=== PATIENT | female | born 2000 | race Two or more races ===

== ENCOUNTER 2022-02-18 14:26 | Emergency (ER) | payer MEDICAID ==
[~2022-02-18] VITALS: Ht 162.6 cm; Wt 50.8 kg
[2022-02-18] MEDS ORDERED: AMOX500T3 PO (16:04)
[2022-02-18] MEDS ORDERED: AMOX-277 PO (16:24)
[2022-02-18 16:25] VITALS: BP 116/81
== END 2022-02-18 16:35 | disposition home or self-care (01) ==
LOC: ER 14:26
DX: J02.9 Acute pharyngitis, unspecified (principal)

== ENCOUNTER 2022-04-07 14:20 | Emergency (ER) | payer MEDICAID ==
[~2022-04-07] VITALS: Ht 162.6 cm; Wt 45.4 kg
[~2022-04-07 14:20] MED LIST: AMOX-277 PO
[2022-04-07 15:00] VITALS: BP 124/82
== END 2022-04-07 16:28 | disposition left against medical advice (07) ==
LOC: ER 14:20
DX: J02.9 Acute pharyngitis, unspecified (principal); Z53.21 Procedure and treatment not carried out due to patient leaving prior to being seen by health care provider

== ENCOUNTER 2022-11-09 15:32 | Emergency (ER) | payer MEDICAID ==
[~2022-11-09] VITALS: Ht 162.6 cm; Wt 54.6 kg
[2022-11-09 16:09] VITALS: BP 128/68
[2022-11-09 17:02] LABS: Urine Bacteria FEW /hpf (None Seen); Urine Blood 2+ /uL (Negative); Urine Hyaline Cast FEW /lpf (0 - 2); Urine Specific Gravity 1.008 (1.001-1.035); Urine WBC 1 /hpf (0 - 5)
== END 2022-11-09 19:01 | disposition left against medical advice (07) ==
LOC: ER 15:32
DX: R10.32 Left lower quadrant pain (principal); Z53.21 Procedure and treatment not carried out due to patient leaving prior to being seen by health care provider
CPT/HCPCS: 81001

== ENCOUNTER 2022-12-12 10:53 | Emergency (ER) | payer MEDICAID ==
[~2022-12-12] VITALS: Ht 162.6 cm; Wt 54.0 kg
[2022-12-12 11:17] LABS: Basophils # (auto) 0.1 10 ^3/uL (0-0.2); Basophils % (auto) 1.1 % (0.0-2.0); Eosinophils # (auto) 0 10 ^3/uL (0-0.8); Eosinophils % (auto) 0.4 % (0.0-7.0); Hematocrit 43.9 % (36.0-46.0); Hemoglobin 14.9 g/dL (12.2-16.2); Lymphocytes # (auto) 1.7 10 ^3/uL (0.4-5.4); Lymphocytes % (auto) 20.6 % (10.0-50.0); Mean Corpuscular Hemoglobin 30.1 pg (28.0-32.0); Mean Corpuscular Hgb Conc. 33.8 g/dL (32.0-36.0); Mean Corpuscular Volume 89.1 fL (80.0-100.0); Monocytes # (auto) 0.9 10 ^3/uL (0-1.3); Monocytes % (auto) 11.3 % (0.0-12.0); Neutrophils # (auto) 5.4 10 ^3/uL (1.6-8.6); Neutrophils % (auto) 66.6 % (37.0-80.0); Red Blood Cells 4.93 10^6/uL (4.0-5.20); Red Cell Distribution Width 13.3 % (11.8-14.3)
[2022-12-12 11:37] LABS: Albumin 4.7 g/dL (3.4-5.0); Calcium 9.8 mg/dL (8.5-10.1); Potassium 3.8 mmol/L (3.5-5.1)
[2022-12-12 11:41] LABS: BUN/Creatinine Ratio 14.5; Bilirubin, Total 1.1 mg/dL (0.2-1.0); Total Protein 9.1 g/dL (6.4-8.2)
[2022-12-12] MEDS ORDERED: LORazepam 0.5 MG TAB PO ONE (12:30)
[2022-12-12 14:19] VITALS: BP 122/80
== END 2022-12-12 14:49 | disposition home or self-care (01) ==
LOC: ER 10:53
DX: F41.9 Anxiety disorder, unspecified (principal)
CPT/HCPCS: 36415; 80053; 84484; 85025; 93005

== ENCOUNTER 2024-03-26 17:58 | Emergency (ER) | payer MEDICAID ==
[~2024-03-26] VITALS: Ht 165.1 cm; Wt 52.0 kg
[~2024-03-26 17:58] MED LIST changes: -AMOX-277 PO; +AMOX875T4 PO
[2024-03-26 21:45] VITALS: BP 120/74; PULSE 97; RESP 16; TEMP 99.4; O2SAT 96
[2024-03-26] MEDS ORDERED: ACET500T58 PO (21:47)
[2024-03-26] MEDS ORDERED: AMOX500C2 PO (21:47)
[2024-03-26] MEDS: cefTRIAXone SOD 1,000 MG VL IM ONE (21:57)
== END 2024-03-26 22:06 | disposition home or self-care (01) ==
LOC: ER 17:58
DX: K04.7 Periapical abscess without sinus (principal); F41.9 Anxiety disorder, unspecified
CPT/HCPCS: 96372; 99283; J0696

== ENCOUNTER 2024-08-19 22:40 | Emergency (ER) | payer MEDICAID ==
[~2024-08-19] VITALS: Ht 167.6 cm; Wt 52.3 kg
[~2024-08-19 22:40] MED LIST changes: +ACET500T58 PO; +AMOX500C2 PO
[2024-08-19 23:38] VITALS: BP 125/74; PULSE 80; RESP 16; TEMP 97.7; O2SAT 97
[2024-08-19] MEDS ORDERED: CEPH500C PO (23:53)
--- NOTE | 2024-08-19 23:53 | ED.PDOC ---
History of Present Illness(SKN HPI Comments 24-year-old female presents to ER for wound check. Patient states that she sustained abrasions to right knee and left hand s/p trip and fall and landing on her right knee and left hand on cement on Monday of last week and presents to ER today for wound check. States that she has been using triple antibiotic ointment and alcohol swabs on her abrasions with some relief. She reports 7/10 pain localized to abrasion right knee and abrasion of left hand. Patient presents to ER ambulatory on arrival, with steady gait, in no distress. Denies fever, body aches, chills, skin drainage or any further symptoms/complaints Chief Complaint: Wound Check Time Seen by MD: 22:59 Primary Care Provider: SARAH History of Present Illness: Nurses Notes, Medications, Allergies Allergies: Coded Allergies: NO KNOWN ALLERGIES (Unverified , 04/14/16) Home Meds Active Scripts Cephalexin Monohydrate (Cephalexin) 500 Mg Cap, 1 CAP PO BID for 7 Days, #14 CAP 0 Refills Prov:BETH READ 08/19/24 Acetaminophen (Acetaminophen) 500 Mg Tab, 500 MG PO Q4HPRN, #30 TAB 0 Refills Prov:BETH READ 03/26/24 Amoxicillin Trihydrate (Amoxicillin) 500 Mg Cap, 1 CAP PO BID for 10 Days, #20 CAP 0 Refills Prov:BETH READ 03/26/24 Amoxicillin & Pot Clavulanate (Amoxicillin/Potassium Cla) 875 Mg Tab, 1 TAB PO BID for 10 Days, #20 TAB Prov:DERIK KRISHNAN 02/18/22 Information Source: Patient Mode of Arrival: Ambulatory Past Medical History PAST MEDICAL HISTORY: Anxiety Surgical History (Other): per patient "heart murmur surgery"- December 2023 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 Family History Family History: Unknown Social History Smoker: Non-Smoker Alcohol: Denies ETOH Use Drugs: Denies Drug Use Lives In: Home Constitutional: denies: chills, diaphoresis, fatigue, fever, malaise, sweats, weakness, others EENTM: denies: blurred vision, double vision, ear bleeding, ear discharge, ear drainage, ear pain, ear ringing, eye pain, eye redness, hearing loss, mouth pain, mouth swelling, nasal discharge, nose bleeding, nose congestion, nose pain, photophobia, tearing, throat pain, throat swelling, voice changes, others Respiratory: denies: cough, hemoptysis, orthopnea, SOB at rest, shortness of breath, SOB with excertion, stridor, wheezing, others Cardiovascular: denies: chest pain, dizzy spells, diaphoresis, Dyspnea on exertion, edema, irregular heart beat, left arm pain, lightheadedness, palpitations, PND, syncope, others Gastrointestinal: denies: abdomen distended, abdominal pain, blood streaked bowels, constipated, diarrhea, dysphagia, difficulty swallowing, hematemesis, melena, nausea, poor appetite, poor fluid intake, rectal bleeding, rectal pain, vomiting, others Genitourinary: denies: abnormal vagina bleeding, burning, dyspareunia, dysuria, flank pain, frequency, hematuria, incontinence, pain, , vagina discharge, urgency, others Neurological: denies: dizziness, fainting, headache, left sided numbness, left sided weakness, numbness, paresthesia, pre-existing deficit, right sided numbness, right sided weakness, seizure, speech problems, tingling, tremors, weakness, others Musculoskeletal: denies: back pain, gout, joint pain, joint swelling, muscle pain, muscle stiffness, neck pain, others Integumetry: reports: others (As stated in HPI) Allergic/Immunocompromised: denies: Difficulty Healing, Frequent Infections, Hives, Itching, others Hematologic/Lymphatic: denies: anemia, blood clots, easy bleeding, easy bruising, swollen glands, others Endocrine: denies: excessive hunger, excessive sweating, excessive thirst, excessive urination, flushing, intolerance to cold, intolerance to heat, unexplained weight gain, unexplained weight loss, others Psychiatric: denies: anxiety, bipolar disorder, depression, hopeless, panic disorder, schizophrenia, sleepless, suicidal, others Physical Exam General Appearance: No Apparent Distress HEENT: PERRL/EOMI Neck: Full Range of Motion, Non-Tender, Normal Respiratory: Chest Non-Tender, Lungs Clear, No Accessory Muscle Use, No Respiratory Distress, Normal Breath Sounds Cardiovascular: No Murmur, No Gallop, Regular Rate/Rhythm Breast Exam: Deferred Gastrointestinal: NOT DONE Genitalia: Deferred Pelvic: Deferred Rectal: Deferred Extremities: Normal capillary refill, Normal range of motion Neurologic: Alert, No Motor Deficits, Normal Affect, Normal Mood, No Sensory Deficits Cerebellar Function: Normal Reflexes: Normal Skin: Dry, Warm, Other (Healing abrasions noted to right knee and palm of left hand noted with slight erythema noted surrounding wound edges. No drainage/red streaking/foreign body noted/deformities noted. No TTP to left wrist noted. Patient able to fully move right knee and all fingers of left hand without difficulty. Pulses intact) Peripheral Pulses: 2+ Radial (R), 2+ Radial (L), 2+ Brachial (R), 2+ Brachial (L) Lymphatic: No Adenopathy Was a procedure done? Was a procedure done?: No Sedation Sedation?: No Differential Diagnosis (INTG) Differential Diagnosis: Abscess Differential Diagnosis: Puncture Wound, Retained Foreign Body X-Ray, Labs, Meds, VS Vital Signs Date Time Temp Pulse Resp B/P (MAP) Pulse Ox O2 Delivery O2 Flow Rate FiO2 08/19/24 22:50 97.6 88 18 125/78 (94) 95 Wound care/cleaning discussed and advised Advised to follow up with PCP in 1-2 days Patient verbalized understanding and agreeable with current plan of care Advised to return to ER immediately if symptoms worsen Time of 1ST Reevaluation: 23:24 Reevaluation 1ST: N/A Patient Education/Counseling: Diagnosis, Treatment, Prognosis, Need For Follow Up Family Education/Counseling: No Family Present Departure 1 Departure Time of Disposition: 23:50 Impression: Primary Impression: Abrasion of knee, right Qualified Codes: S80.211A - Abrasion, right knee, initial encounter Additional Impression: Abrasion of left hand Qualified Codes: S60.512A - Abrasion of left hand, initial encounter Disposition: HOME / SELF CARE / HOMELESS Condition: Stable e-Prescriptions Cephalexin Monohydrate (Cephalexin) 500 Mg Cap 1 CAP PO BID for 7 Days, #14 CAP 0 Refills Prov: BETH READ 08/19/24 Discharged With: Self Critical Care Note Critical Care Time?: No Stability Stability form required: No Heart Score Heart Score: Heart Score Response (Comments) Value History N/A 0 EKG N/A 0 Age N/A 0 Risk Factors N/A 0 Troponin N/A 0 Total 0 BETH READ Aug 19, 2024 23:53
== END 2024-08-20 00:30 | disposition home or self-care (01) ==
LOC: ER 22:40
DX: S80.211A Abrasion, right knee, initial encounter (principal); S60.512A Abrasion of left hand, initial encounter; Z79.899 Other long term (current) drug therapy; Z98.890 Other specified postprocedural states; W18.39XA Other fall on same level, initial encounter; Y93.89 Activity, other specified; Y92.89 Other specified places as the place of occurrence of the external cause; Y99.8 Other external cause status

== ENCOUNTER 2024-09-01 22:42 | Emergency (ER) | payer MEDICAID, OTHER ==
[~2024-09-01] VITALS: Ht 167.6 cm; Wt 63.6 kg
[~2024-09-01 22:42] MED LIST changes: +CEPH500C PO
[2024-09-02] MEDS: ONDANSETRON HCL 4 MG/2 ML VIAL IV ONE (01:05)
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
[2024-09-02] MEDS: cefTRIAXone 1GM/50ML D5W 50 ML IV ONE (02:21)
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
[2024-09-02 04:52] VITALS: TEMP 98.6; O2SAT 99
[2024-09-02 05:02] VITALS: BP 119/66; PULSE 83; RESP 16
[2024-09-02] MEDS: MORPHINE SULFATE INJ 2 MG/ml SYRG IV ONE (05:02)
== END 2024-09-02 03:00 | disposition short-term general hospital (02) ==
LOC: ER 22:42
DX: S02.2XXA Fracture of nasal bones, initial encounter for closed fracture (principal); S02.32XA Fracture of orbital floor, left side, initial encounter for closed fracture; S02.19XA Other fracture of base of skull, initial encounter for closed fracture; S01.112A Laceration without foreign body of left eyelid and periocular area, initial encounter; V43.52XA Car driver injured in collision with other type car in traffic accident, initial encounter; Y92.410 Unspecified street and highway as the place of occurrence of the external cause
CPT/HCPCS: 70486; 96365; 96375; 99285; J0696; J2270; J2405

== ENCOUNTER 2025-07-19 20:08 | Emergency (ER) | payer MEDICAID, OTHER ==
[~2025-07-19] VITALS: Ht 167.6 cm; Wt 49.7 kg
[2025-07-19 20:10] VITALS: BP 139/78; TEMP 98.1
--- NOTE | 2025-07-19 20:28 | ED.PDOC ---
History of Present Illness HPI Comments 25 y/o F presents with c/c of left back tooth pain and bleeding. Chief Complaint: Tooth Pain Time Seen by MD: 20:20 Primary Care Provider: SARAH Bernal Notes: Nurses Notes, Medications, Allergies Allergies: Coded Allergies: NO KNOWN ALLERGIES (Unverified , 04/14/16) Home Meds Active Scripts Amoxicillin & Pot Clavulanate (AUGMENTIN TABLET) 875 Mg Tb, 875 MG PO BID for 7 Days, #14 TAB Prov:STEW FERRISP 07/19/25 Cephalexin Monohydrate (Cephalexin) 500 Mg Cap, 1 CAP PO BID for 7 Days, #14 CAP 0 Refills Prov:BETH READ 08/19/24 Acetaminophen (Acetaminophen) 500 Mg Tab, 500 MG PO Q4HPRN, #30 TAB 0 Refills Prov:BETH READ 03/26/24 Amoxicillin Trihydrate (Amoxicillin) 500 Mg Cap, 1 CAP PO BID for 10 Days, #20 CAP 0 Refills Prov:BETH READ 03/26/24 Amoxicillin & Pot Clavulanate (Amoxicillin/Potassium Cla) 875 Mg Tab, 1 TAB PO BID for 10 Days, #20 TAB Prov:DERIK KRISHNAN 02/18/22 Information Source: Patient Mode of Arrival: Ambulatory Past Medical History PAST MEDICAL HISTORY: Anxiety 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 Family History Family History: Unknown Social History Smoker: Non-Smoker Alcohol: Denies ETOH Use Drugs: Denies Drug Use Lives In: Home All Other Systems: Reviewed and Negative (Comprehensive review of systems are negative unless stated in HPI) Physical Exam General Appearance: No Apparent Distress, Normal HEENT: Pharynx Normal, TMs Normal, Other (Rotted severely decayed half tooth left upper back molar no noted bleeding or drainage) Neck: Full Range of Motion, Non-Tender Respiratory: Lungs Clear, No Respiratory Distress, Normal Breath Sounds Cardiovascular: No Edema, No JVD, No Murmur, No Gallop, Normal Peripheral Pulses, Regular Rate/Rhythm Breast Exam: Deferred Gastrointestinal: Non Tender, Soft Genitalia: Deferred Pelvic: Deferred Rectal: Deferred Extremities: Normal capillary refill, Normal range of motion, No pedal edema Musculoskeletal : Apperance: Normal Neurologic: Alert, No Motor Deficits, Normal Affect, Normal Mood, No Sensory Deficits Cerebellar Function: Normal Reflexes: NOT DONE Skin: Dry, Normal Color, Warm Lymphatic: No Adenopathy Was a procedure done? Was a procedure done?: No Differential Dx Considerations may include: dental carries, dental abscess, sepsis, among others X-Ray, Labs, Meds, VS Vital Signs Date Time Temp Pulse Resp B/P (MAP) Pulse Ox O2 Delivery O2 Flow Rate FiO2 07/19/25 21:16 94 18 97 Room Air 07/19/25 20:10 98.1 94 18 139/78 97 98.1 Current Medications Medications (Trade) Dose Ordered Sig/Shilpa Route Start Time Stop Time Status Last Admin Amoxicillin/ Clavulanate Potassium (Augmentin Tablet) 875 mg ONCE ONCE PO 07/19/25 21:15 07/19/25 21:16 DC 07/19/25 21:14 X-Ray, Labs, Meds, VS Comment Patient treated with Augmentin prior to discharge. Script trial of Augmentin twice daily x7 days likely infected. Advised take medication as prescribed side effects discussed. Advised to follow up with dental for resolution. Advised to rest increase p.o. fluids with electrolytes [id number] Tylenol as needed for the pain per labeled dosing instructions. ER return precautions given patient indicates understanding agrees with discharge plan of care Time of 1ST Reevaluation: 20:50 Reevaluation 1ST: Unchanged Time of 2ND Reevaluation: 21:05 Patient Education/Counseling: Diagnosis, Treatment, Need For Follow Up Family Education/Counseling: No Family Present SEPSIS Sepsis Screen Date sepsis recognized/suspect: Jul 19, 2025 Time Sepsis recognized/suspect: 2018 Recent Procedure: No On Antibiotic Therapy: No Respiratory Rate >20: No Heart Rate >90: No Temp<36 C (96.8 F) or >38.3 C: No SBP <90 or MAP <65 mmHG: No New Acute Mental Status Change: No Is the patient on CPAP, BIPAP,: No Vital Signs Date Time Temp Pulse Resp B/P (MAP) Pulse Ox O2 Delivery O2 Flow Rate FiO2 07/19/25 21:16 94 18 97 Room Air 07/19/25 20:10 98.1 94 18 139/78 97 98.1 Medications Medications Dose Ordered Sig/Shilpa Route Start Time Stop Time Status Last Admin Dose Admin Amoxicillin/ Clavulanate Potassium 875 mg ONCE ONCE PO 07/19/25 21:15 07/19/25 21:16 DC 07/19/25 21:14 Departure 1 Departure Time of Disposition: 21:06 Impression: Primary Impression: Dental infection Disposition: 01 HOME / SELF CARE / HOMELESS Condition: Stable e-Prescriptions Amoxicillin & Pot Clavulanate (AUGMENTIN TABLET) 875 Mg Tb 875 MG PO BID for 7 Days, #14 TAB Prov: STEW FERRIS 07/19/25 Discharged With: Self Critical Care Note Critical Care Time?: No Stability Stability form required: No Heart Score Heart Score: Heart Score Response (Comments) Value History N/A 0 EKG N/A 0 Age N/A 0 Risk Factors N/A 0 Troponin N/A 0 Total 0 I personally scribed for ER ([email or web address]) on 07/19/25 at 20:28. Electronically submitted by Phani Amaro ([email or web address]). ER Jul 19, 2025 20:28 STEW FERRIS Jul 19, 2025 21:08
[2025-07-19] MEDS ORDERED: AUG875T PO (21:08)
[2025-07-19] MEDS: AMOXICILLIN/CLAVUL 875 MG TAB PO ONE (21:14)
[2025-07-19 21:16] VITALS: PULSE 94; RESP 18; O2SAT 97
== END 2025-07-19 21:16 | disposition home or self-care (01) ==
LOC: ER 20:08
DX: K04.7 Periapical abscess without sinus (principal); F41.9 Anxiety disorder, unspecified; Z79.899 Other long term (current) drug therapy

== ENCOUNTER 2025-08-26 11:50 | Emergency (ER) | payer MEDICAID ==
[~2025-08-26] VITALS: Ht 165.1 cm; Wt 48.8 kg
--- NOTE | 2025-08-26 13:59 | ED.PDOC ---
History of Present Illness(SKN HPI Comments 25-year-old female who presents to the ED for chief complaint of wound check. Patient states she had a mechanical fall this past four days prior and states she was wearing heels and states she had a mechanical fall and she obtained a laceration to the right side of her vaginal canal she describes is a cut. Patient otherwise describes denies any further details regarding mechanism of injury. The patient otherwise has stable vitals in the ED. The patient denies any other symptoms. Chief Complaint: Wound Check Time Seen by MD: 13:54 Primary Care Provider: SARAH History of Present Illness: Medications, Allergies Allergies: Coded Allergies: NO KNOWN ALLERGIES (Unverified , 04/14/16) Home Meds Active Scripts Cephalexin Monohydrate (Cephalexin) 500 Mg Cap, 1 CAP PO BID for 7 Days, #14 CAP 0 Refills Prov:BETH READ 08/19/24 Acetaminophen (Acetaminophen) 500 Mg Tab, 500 MG PO Q4HPRN, #30 TAB 0 Refills Prov:BETH READ 03/26/24 Amoxicillin Trihydrate (Amoxicillin) 500 Mg Cap, 1 CAP PO BID for 10 Days, #20 CAP 0 Refills Prov:BETH READ 03/26/24 Amoxicillin & Pot Clavulanate (Amoxicillin/Potassium Cla) 875 Mg Tab, 1 TAB PO BID for 10 Days, #20 TAB Prov:DERIK KRISHNAN 02/18/22 Information Source: Patient Mode of Arrival: Ambulatory Past Medical History PAST MEDICAL HISTORY: Anxiety Surgical History: Denies all surgeries 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 Family History Family History: Reviewed,noncontributory to illness Social History Smoker: Non-Smoker Alcohol: Denies ETOH Use Drugs: Denies Drug Use Lives In: Home Constitutional: denies: chills, diaphoresis, fatigue, fever, malaise, sweats, weakness, others EENTM: denies: blurred vision, double vision, ear bleeding, ear discharge, ear drainage, ear pain, ear ringing, eye pain, eye redness, hearing loss, mouth pain, mouth swelling, nasal discharge, nose bleeding, nose congestion, nose pain, photophobia, tearing, throat pain, throat swelling, voice changes, others Respiratory: denies: cough, hemoptysis, orthopnea, SOB at rest, shortness of breath, SOB with excertion, stridor, wheezing, others Cardiovascular: denies: chest pain, dizzy spells, diaphoresis, Dyspnea on exertion, edema, irregular heart beat, left arm pain, lightheadedness, palpitations, PND, syncope, others Gastrointestinal: denies: abdomen distended, abdominal pain, blood streaked bowels, constipated, diarrhea, dysphagia, difficulty swallowing, hematemesis, melena, nausea, poor appetite, poor fluid intake, rectal bleeding, rectal pain, vomiting, others Genitourinary: denies: abnormal vagina bleeding, burning, dyspareunia, dysuria, flank pain, frequency, hematuria, incontinence, pain, , vagina discharge, urgency, others Neurological: denies: dizziness, fainting, headache, left sided numbness, left sided weakness, numbness, paresthesia, pre-existing deficit, right sided numbness, right sided weakness, seizure, speech problems, tingling, tremors, weakness, others Musculoskeletal: denies: back pain, gout, joint pain, joint swelling, muscle pain, muscle stiffness, neck pain, others Integumetry: reports: others (vulvular tear); denies: bruises, change in color, change in hair/nails, dryness, laceration, lesions, lumps, rash, wounds Allergic/Immunocompromised: denies: Difficulty Healing, Frequent Infections, Hives, Itching, others Hematologic/Lymphatic: denies: anemia, blood clots, easy bleeding, easy bruising, swollen glands, others Endocrine: denies: excessive hunger, excessive sweating, excessive thirst, excessive urination, flushing, intolerance to cold, intolerance to heat, unexplained weight gain, unexplained weight loss, others Psychiatric: denies: anxiety, bipolar disorder, depression, hopeless, panic disorder, schizophrenia, sleepless, suicidal, others All Other Systems: Reviewed and Negative Physical Exam General Appearance: No Apparent Distress, Normal HEENT: Normal ENT Inspection, Pharynx Normal, TMs Normal Neck: Full Range of Motion, Non-Tender, Normal, Normal Inspection Respiratory: Chest Non-Tender, Lungs Clear, No Accessory Muscle Use, No Respiratory Distress, Normal Breath Sounds Cardiovascular: No Edema, No JVD, No Murmur, No Gallop, Normal Peripheral Pulses, Regular Rate/Rhythm Breast Exam: Deferred Gastrointestinal: No Organomegaly, Non Tender, No Pulsatile Mass, Normal Bowel Sounds, Soft Genitalia: Other (1 cm Right upper vulvular fissue noted, no active bleeding) Pelvic: Deferred Rectal: Deferred Extremities: No calf tenderness, Normal capillary refill, Normal inspection, Normal range of motion, Non-tender, No pedal edema Musculoskeletal : Apperance: Normal Neurologic: Alert, car builder II-XII nml as Tested, No Motor Deficits, Normal Affect, Normal Mood, No Sensory Deficits Cerebellar Function: Normal Reflexes: Normal Skin: Dry, Normal Color, Warm Lymphatic: No Adenopathy Was a procedure done? Was a procedure done?: No Differential Diagnosis (INTG) Differential Diagnosis: Laceration, Other (vulvar fissure) X-Ray, Labs, Meds, VS Vital Signs Date Time Temp Pulse Resp B/P (MAP) Pulse Ox O2 Delivery O2 Flow Rate FiO2 08/26/25 11:54 98.7 78 16 125/91 96 98.7 Lab Test 08/26/25 16:07 Range/Units Urine Color Yellow Yellow Urine Clarity Turbid H Clear Urine pH 5.5 5.0-9.0 Urine Specific [place] 1.022 1.001-1.035 Urine Protein Trace H Negative Urine Ketones 1+ H Negative Urine Blood 1+ H Negative /uL Urine Nitrite Negative Negative Urine Bilirubin Negative Negative Urine Urobilinogen 2 H Negative mg/dL Urine Leukocyte Esterase 3+ Negative /uL Urine RBC 11 0 - 4 /hpf Urine Microscopic WBC 32 H 0-5 /HPF Urine Squamous Epithelial Cells Few <5 /hpf Urine Calcium Oxalate Crystals Few None Seen Urine Bacteria Few H None Seen /hpf Urine Mucus Few None Seen Urine Glucose Normal Normal mg/dL Urine Test Negative Negative Time of 1ST Reevaluation: 14:30 Reevaluation 1ST: Unchanged Patient Education/Counseling: Diagnosis, Treatment Family Education/Counseling: No Family Present SEPSIS Sepsis Screen Date sepsis recognized/suspect: Aug 26, 2025 Time Sepsis recognized/suspect: 1205 Recent Procedure: No On Antibiotic Therapy: No Respiratory Rate >20: No Heart Rate >90: No Temp<36 C (96.8 F) or >38.3 C: No SBP <90 or MAP <65 mmHG: No New Acute Mental Status Change: No Is the patient on CPAP, BIPAP,: No Vital Signs Date Time Temp Pulse Resp B/P (MAP) Pulse Ox O2 Delivery O2 Flow Rate FiO2 08/26/25 11:54 98.7 78 16 125/91 96 98.7 Departure 1 Departure Time of Disposition: 16:50 Impression: Primary Impression: Fissure of vulva Additional Impression: UTI (urinary tract infection) Disposition: 01 HOME / SELF CARE / HOMELESS Condition: Stable e-Prescriptions Cephalexin Monohydrate (Cephalexin) 500 Mg Cap 1 CAP PO QID for 7 Days, #28 CAP 0 Refills Prov: CHAIM MARAVILLA NP 08/26/25 Critical Care Note Critical Care Time?: No Stability Stability form required: No Heart Score Heart Score: Heart Score Response (Comments) Value History N/A 0 EKG N/A 0 Age N/A 0 Risk Factors N/A 0 Troponin N/A 0 Total 0 I personally scribed for CHAIM MARAVILLA NP ([email or web address]) on 08/26/25 at 13:59. Electronically submitted by Leonard WATTS). CHAIM MARAVILLA NP Aug 26, 2025 13:59
[2025-08-26 16:34] LABS: Urine Protein, UAD TRACE (Negative)
[2025-08-26] MEDS ORDERED: CEPH500C PO (16:51)
[2025-08-26 16:58] VITALS: BP 112/86; PULSE 62; RESP 16; TEMP 98.7; O2SAT 96
== END 2025-08-26 17:00 | disposition home or self-care (01) ==
LOC: ER 11:50
DX: N90.89 Other specified noninflammatory disorders of vulva and perineum (principal); N39.0 Urinary tract infection, site not specified; W19.XXXA Unspecified fall, initial encounter; Y93.89 Activity, other specified; Y92.89 Other specified places as the place of occurrence of the external cause; Y99.8 Other external cause status
CPT/HCPCS: 81001; 81025

== ENCOUNTER 2025-09-19 21:02 | Inpatient (IN) | payer MEDICAID ==
[~2025-09-19] VITALS: Ht 165.1 cm; Wt 49.0 kg
--- NOTE | 2025-09-19 21:38 | ECG ---
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
--- NOTE | 2025-09-19 21:53 | ED.PDOC ---
HPI Comments HPI: Poor Historian. 25-year-old female presents to emergency department for one day history of left- sided chest discomfort nonradiating. No alleviating or precipitating factors. No associated symptoms. Patient was more concerned because she has been diagnosed with atrial septal defect last year and underwent atrial septal defect repair in December of 2023. She has been doing fine since then and she is scheduled for a transesophageal echocardiogram in October in few weeks at [facility]. Past Medical History: Atrial septal defect, Past Surgical History: Atrial septal defect repair Denies any tobacco alcohol or drugs. REVIEW OF SYSTEMS: CONSTITUTIONAL: Denies acute: fever, diaphoresis, chills, generalized weakness. HEAD: Denies acute: headache, photophobia Eyes: Denies acute: Double vision, vision loss, eye pain, eye discharge. EARS: Denies acute: tinnitus, hearing loss, ear discharge, ear pain, THROAT: Denies acute: sore throat, swelling, difficulty swallowing , pain with swallowing, change in voice. NECK: Denies acute: neck pain, neck swelling, stiff neck. HEART: Denies acute : , palpitations, LUNGS: Denies acute: SOB, wheezing, cough, hemoptysis ABDOMEN: Denies acute: abdominal pain, Nausea, Vomiting, diarrhea, melena , hematemesis, hematochezia SKIN: Denies acute: rash, redness, lesions, itchiness. EXTREMITIES: Denies acute: calf pain, numbness, tingling, weakness, denies pain in extremity. Denies acute: Low back pain. Neuro: Denies acute: focal neurological deficit, motor or sensory focal neurological deficit, tremors, seizure like activity, confusion, dizziness, change in mental status, loss of bowel or bladder function, cauda equina like symptoms. : Denies acute: dysuria, hematuria, flank pain, increase in urinary frequency. PSYCH: Denies acute: hallucination, suicidal ideation, homicidal ideation. FEMALE: Denies acute: abnormal vaginal bleeding, foul odor, unusual discharge. PHYSICAL EXAM: General: ----mild----acute distress, awake and alert. Head: normocephalic, atraumatic. No raccoon's eyes, no naranjo sign. Neck: supple, trachea is midline, no swelling. Throat: Normal phonation. Eyes:, no erythema, no purulent discharge, no proptosis, no icterus. Heart: regular rate, regular rhythm, no significant murmur appreciated. Lungs: no apparent respiratory distress, Able to speak in full sentences. No wheezing, no rhonchi, no crackles. No stridors Clear to auscultation bilaterally. Abdomen: non tender to palpation, non distended, soft, no guarding, no rebound, + bowel sounds. Neuro: Awake, Alert, oriented to name, self, situation, follows commands GCS=15. Speech is normal. Skin: no petechia, no purpura, no cyanosis, non-pale, not jaundice. Lower extremities: --no - Pitting edema no deformity, no focal swelling, no calf TTP. Makes eye contact. moves all four extremities. Face: no apparent facial droop. Ambulating in the ED independently. ED COURSE: DISCLAIMER: This medical document was created using an electronic medical record system with voice recognition software and computerized dictation system. Although this document has been carefully reviewed, there might still be some phonetic and typographical errors. Occasional wrong-word or "sound-alike" substitutions may have occurred due to the inherent limitations of voice recognition software. These areas are purely typographical due to imperfections of the software programs and do not reflect any compromise in the patient's medical care. Please read the chart carefully and recognize, using context, where these substitutions have occurred. Chief Complaint: Chest Pain Time Seen by MD: 21:17 Primary Care Provider: SARAH Bernal Notes: Allergies Allergies: Coded Allergies: NO KNOWN ALLERGIES (Unverified , 04/14/16) Home Meds Active Scripts Cephalexin Monohydrate (Cephalexin) 500 Mg Cap, 1 CAP PO QID for 7 Days, #28 CAP 0 Refills Prov:CHAIM MARAVILLA NP 08/26/25 Cephalexin Monohydrate (Cephalexin) 500 Mg Cap, 1 CAP PO BID for 7 Days, #14 CAP 0 Refills Prov:BETH READ 08/19/24 Acetaminophen (Acetaminophen) 500 Mg Tab, 500 MG PO Q4HPRN, #30 TAB 0 Refills Prov:BETH READ 03/26/24 Amoxicillin Trihydrate (Amoxicillin) 500 Mg Cap, 1 CAP PO BID for 10 Days, #20 CAP 0 Refills Prov:BETH READ 03/26/24 Amoxicillin & Pot Clavulanate (Amoxicillin/Potassium Cla) 875 Mg Tab, 1 TAB PO BID for 10 Days, #20 TAB Prov:DERIK KRISHNAN 02/18/22 Information Source: Patient Mode of Arrival: Ambulatory Past Medical History PAST MEDICAL HISTORY: Anxiety Surgical History: Denies all surgeries 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 Was a procedure done?: No CP Differential Dx Differential Diagnosis: N/A Differential Diagnosis: Other (Ddx include but not limitied to gastritis, musculoskeletal pain, radiculopathy, atypical chest pain, dissection, aneurysm, ACS, unstable angina, hiatal hernia, GERD, anxiety, costochondritis, PE, pneumothroax, neoplasm, cardiac ischemia, drug abuse, anemia.) X-Ray, Labs, Meds, VS Vital Signs Date Time Temp Pulse Resp B/P (MAP) Pulse Ox O2 Delivery O2 Flow Rate FiO2 09/19/25 21:13 98.9 81 18 119/90 97 98.9 09/19/25 21:09 81 Lab Test 09/19/25 22:17 09/19/25 21:12 Range/Units Troponin I High Sensitivity < 3 L < 3 L </=34 ng/L White Blood Count 10.0 4.4-10.8 10^3/uL Red Blood Count 4.72 4.0-5.20 10^6/uL Hemoglobin 14.2 12.2-16.2 g/dL Hematocrit 42.6 36.0-46.0 % Mean Corpuscular Volume 90.3 80.0-100.0 fL Mean Corpuscular Hemoglobin 30.2 28.0-32.0 pg Mean Corpuscular Hemoglobin Concent 33.4 32.0-36.0 g/dL Red Cell Distribution Width 13.7 11.8-14.3 % Platelet Count 416 140-450 10^3/uL Mean Platelet Volume 7.5 6.9-10.8 fL Neutrophils (%) (Auto) 76.2 37.0-80.0 % Lymphocytes (%) (Auto) 15.1 10.0-50.0 % Monocytes (%) (Auto) 7.8 0.0-12.0 % Eosinophils (%) (Auto) 0.2 0.0-7.0 % Basophils (%) (Auto) 0.7 0.0-2.0 % Neutrophils # (Auto) 7.6 1.6-8.6 10 ^3/uL Lymphocytes # (Auto) 1.5 0.4-5.4 10 ^3/uL Monocytes # (Auto) 0.8 0-1.3 10 ^3/uL Eosinophils # (Auto) 0 0-0.8 10 ^3/uL Basophils # (Auto) 0.1 0-0.2 10 ^3/uL Nucleated Red Blood Cells 0.1 % D-Dimer, Quantitative 0.31 0.0-0.49 mg/L FEU Sodium Level 136 136-145 mmol/L Potassium Level 3.8 3.5-5.1 mmol/L Chloride Level 100 98-107 mmol/L Carbon Dioxide Level 25 20-31 mmol/L Anion Gap 11 5-15 Blood Urea Nitrogen 9 9-23 mg/dL Creatinine 0.63 0.550-1.02 mg/dL Glomerular Filtration Rate Calc 127 >90 mL/min BUN/Creatinine Ratio 14.3 10.0-20.0 Serum Glucose 81 74-106 mg/dL Calcium Level 9.5 8.7-10.4 mg/dL Total Bilirubin 0.7 0.2-1.0 mg/dL Aspartate Amino Transferase (AST) 22 13-40 U/L Alanine Aminotransferase (ALT) 14 7-40 U/L Alkaline Phosphatase 89 46-116 U/L B-Type Natriuretic Peptide 21.86 0-100 pg/mL Total Protein 8.8 H 5.7-8.2 g/dL Albumin 4.9 H 3.2-4.8 g/dL [address] [address] Ph: [phone] DIAGNOSTIC IMAGING Diagnostic Imaging Report : [id number] Signed PATIENT: BETY LEAIAACCT: [id number] UNIT: [id number] : 2000 LOC: ER ROOM / BED: / AGE / SEX: 25 / F ADM STATUS: REG ER SERVICE 37 ORDERING PHYSICIAN: SEBASTIEN WIN DO PROCEDURE(s): CXRP - CHEST PORTABLE REASON: cp ORDER NUMBER(s): [id number], ACCESSION NUMBER(s): [id number] INDICATION: cp TECHNIQUE: Frontal view of the chest. COMPARISON: FINDINGS/IMPRESSION: The lungs are clear. The cardiomediastinal silhouette is unremarkable. No pleural effusion or pneumothorax. No acute osseous abnormality. ATED BY: JACOB HOLLY MD DICTATED DATE/TIME: 09/19/252214 SIGNED BY: JACOB HOLLY MD SIGNED DATE/TIME: 09/19/252214 CC: Time of 1ST Reevaluation: : Reevaluation 1ST: Unchanged Patient Education/Counseling: Diagnosis, Treatment Family Education/Counseling: No Family Present Comments MDM: patient presented with the above HPI.--cardiac----workup was initiated. patient was found with the above mentioned diagnosis. the following medications were ordered: please refer to order lists of meds and tests obtained by myself Dr. Win. Patient ED course and VS have been stabilized. Patient has been reassessed in the ED and remained in a stable condition. Pertinent incidental findings were discussed with the patient and/or family. Patient/family voices understanding and is agreeable with plan. Patient has been observed in the ED adequate length of time to insure improvement/stability. Escalation of care considered: Consideration of escalation to observation or admission Patient was ADMITTED to the medicine team for further evaluation and treatment of their presentation. All the reports of any imaging studies that were ordered by myself were reviewed by myself. Departure 1 Departure Time of Disposition: : Impression: Primary Impression: Chest pain Disposition: ADMITTED INPATIENT Admit to: Tele Condition: Guarded Discharged With: Self Critical Care Note Critical Care Time?: No Heart Score Heart Score: Heart Score Response (Comments) Value History Moderate Suspicious 1 EKG Normal 0 Age <45 0 Risk Factors 1 or 2 risk factors 1 Troponin Normal limit 0 Total 2 I personally scribed for SEBASTIEN WIN DO ([email or web address]) on 09/19/25 at 22:45. Electronically submitted by Dung Villafana ([email or web address]). SEBASTIEN WIN DO Sep 19, 2025 21:53
[2025-09-19 21:54] LABS: Hematocrit 42.6 % (36.0-46.0); Hemoglobin 14.2 g/dL (12.2-16.2); Mean Corpuscular Hemoglobin 30.2 pg (28.0-32.0); Mean Corpuscular Volume 90.3 fL (80.0-100.0); Nucleated Red Blood Cells % 0.1 %
[2025-09-19 22:11] LABS: Alanine Aminotransferase 14 U/L (7-40); Alkaline Phosphatase 89 U/L (46-116); Anion Gap 11 (5-15); BUN/Creatinine Ratio 14.3 (10.0-20.0); Calcium 9.5 mg/dL (8.7-10.4); Carbon Dioxide 25 mmol/L (20-31); Chloride 100 mmol/L (98-107); Glucose 81 mg/dL (74-106); Potassium 3.8 mmol/L (3.5-5.1); Sodium 136 mmol/L (136-145)
[2025-09-19 22:12] LABS: Bilirubin, Total 0.7 mg/dL (0.2-1.0)
[2025-09-19 22:16] LABS: Albumin 4.9 g/dL (3.2-4.8); Blood Urea Nitrogen 9 mg/dL (9-23); Total Protein 8.8 g/dL (5.7-8.2)
--- NOTE | 2025-09-19 22:17 | DVH ---
INDICATION: cp TECHNIQUE: Frontal view of the chest. COMPARISON: FINDINGS/IMPRESSION: The lungs are clear. The cardiomediastinal silhouette is unremarkable. No pleural effusion or pneumothorax. No acute osseous abnormality.
[2025-09-19] MEDS ORDERED: ONDANSETRON HCL 4 MG/2 ML VIAL IV PRN (23:30)
[2025-09-19] MEDS ORDERED: ACETAMINOPHEN 325 MG TAB PO PRN (23:30)
[2025-09-19] MEDS ORDERED: HYDROcodone-ACET 5/325MG TAB PO PRN (23:30)
[2025-09-19] MEDS ORDERED: DOCUSATE SOD 100 MG CAP PO PRN (23:30)
--- NOTE | 2025-09-19 23:53 | DVHHP2 ---
History of Present Illness Reason for Visit: Chest pain History of Present Illness The patient is a 25-year-old female with past medical history of atrial septal defect who presented to [facility] with complaint of chest pain. Patient reports that she has been experiencing substernal left-sided chest pain, dull sensation, nonradiating, rating 5/10 numeric scale, getting worse that prompted this visit. Patient was more concerned because she has been diagnosed with atrial septal defect last year and underwent atrial septal defect repair in December of 2023. She has been doing fine since then and she is scheduled for transesophageal echocardiogram in October in few weeks at [facility]. Patient was seen and evaluated in the ED, laboratory data shows WBC 10.0, platelets 416, sodium 136, potassium 3.8, BUN 9, creatinine 0.63, GFR 127, glucose 81, calcium 9.5, troponin < 3, BNP 21.86, D-dimer 0.31, blood pressure 119/90, heart rate 82, temperature 98.9 F, O2 saturation 97% on room air. Chest x-ray show no pleural effusion or pneumothorax, no acute osseous abnormality. On my assessment, patient denied chest pain at this moment, no headache, dizziness, diaphoresis, shortness of breaths, no diarrhea, nausea, vomiting, fever, no chills. Patient was admitted for further evaluation and medical management. Past Medical History Atrial septal defect, Anxiety Past Surgical History Atrial septal defect repair Family History Reviewed, noncontributory to the management of this case. Past Social History The patient lives at home, denies smoking, alcohol or illicit drugs abuse. Review of Systems Constitutional: No: Fever, Chills, Sweats, Weakness, Malaise, Other Eyes: No: Pain, Vision change, Conjunctivae inflammation, Eyelid inflammation, Other, Redness ENT: No: Ear pain, Ear discharge, Nose pain, Nose discharge, Nose congestion, Mouth pain, Mouth swelling, Throat pain, Throat swelling, Other Respiratory: No: Cough, Dry, Shortness of breath, SOB with excertion, Wheezing, Hemoptysis, Pleuritic Pain, Sputum, Wheezing, Other Cardiovascular: Chest Pain; No: Palpitations, Orthopnea, Paroxysmal Noc. Dyspnea, Edema, Lt Headedness, Other Gastrointestinal: No: Nausea, Vomiting, Abdominal Pain, Diarrhea, Constipation, Melena, Hematochezia, Other Genitourinary: No Dysuria, No Frequency, No Incontinence, No Hematuria, No Retention, No Other Musculoskeletal: No: other, neck pain, shoulder pain, arm pain, back pain, hand pain, leg pain, foot pain Skin: No: Rash, Lesions, Jaundice, Bruising, Other Neurological: No: Weakness, Numbness, Incoordination, Change in speech, Confusion, Seizures, Other Allergies: Coded Allergies: NO KNOWN ALLERGIES (Unverified , 04/14/16) Medications Current Medications Medications Dose Ordered Sig/Shilpa Route Start Time Stop Time Status Last Admin Dose Admin Sodium Chloride 1,000 ml @ 60 mls/hr [id number] IV 09/19/25 23:30 Acetaminophen/ Hydrocodone Bitart 1 tab Q4HP PRN PO 09/19/25 23:30 Ondansetron HCl 4 mg Q4HP PRN IV 09/19/25 23:30 Docusate Sodium 100 mg BIDPRN PRN PO 09/19/25 23:30 Acetaminophen 650 mg Q6HP PRN PO 09/19/25 23:30 Exam Vital Signs Vital Signs Date Time Temp Pulse Resp B/P (MAP) Pulse Ox O2 Delivery O2 Flow Rate FiO2 09/19/25 21:13 98.9 81 18 119/90 97 98.9 General Appearance: Alert, Oriented X3, Cooperative, No acute distress HEENT: Atraumatic, PERRLA, EOMI, Mucous membr. moist/pink Respiratory: Normal air movement Cardiovascular: Regular rate, Normal S1, Normal S2, No murmurs Abdominal: Normal bowel sounds, Soft, No tenderness, No hepatospenomegaly, No masses Extremities: No clubbing, No cyanosis, No edema, Normal pulses, No tenderness/swelling Skin: No rashes, No breakdown, No significant lesion Neuro: Normal gait, Normal speech, Strength at 5/5 X4 ext, Normal tone, Sensation intact, Cranial nerves 3-12 NL, Reflexes 2+ Psych/Mental Status: Mental status NL, Mood NL Labs/Xrays Labs Test 09/19/25 22:17 09/19/25 21:12 Range/Units Troponin I High Sensitivity < 3 L </=34 ng/L White Blood Count 10.0 4.4-10.8 10^3/uL Red Blood Count 4.72 4.0-5.20 10^6/uL Hemoglobin 14.2 12.2-16.2 g/dL Hematocrit 42.6 36.0-46.0 % Mean Corpuscular Volume 90.3 80.0-100.0 fL Mean Corpuscular Hemoglobin 30.2 28.0-32.0 pg Mean Corpuscular Hemoglobin Concent 33.4 32.0-36.0 g/dL Red Cell Distribution Width 13.7 11.8-14.3 % Platelet Count 416 140-450 10^3/uL Mean Platelet Volume 7.5 6.9-10.8 fL Neutrophils (%) (Auto) 76.2 37.0-80.0 % Lymphocytes (%) (Auto) 15.1 10.0-50.0 % Monocytes (%) (Auto) 7.8 0.0-12.0 % Eosinophils (%) (Auto) 0.2 0.0-7.0 % Basophils (%) (Auto) 0.7 0.0-2.0 % Neutrophils # (Auto) 7.6 1.6-8.6 10 ^3/uL Lymphocytes # (Auto) 1.5 0.4-5.4 10 ^3/uL Monocytes # (Auto) 0.8 0-1.3 10 ^3/uL Eosinophils # (Auto) 0 0-0.8 10 ^3/uL Basophils # (Auto) 0.1 0-0.2 10 ^3/uL Nucleated Red Blood Cells 0.1 % D-Dimer, Quantitative 0.31 0.0-0.49 mg/L FEU Sodium Level 136 136-145 mmol/L Potassium Level 3.8 3.5-5.1 mmol/L Chloride Level 100 98-107 mmol/L Carbon Dioxide Level 25 20-31 mmol/L Anion Gap 11 5-15 Blood Urea Nitrogen 9 9-23 mg/dL Creatinine 0.63 0.550-1.02 mg/dL Glomerular Filtration Rate Calc 127 >90 mL/min BUN/Creatinine Ratio 14.3 10.0-20.0 Serum Glucose 81 74-106 mg/dL Calcium Level 9.5 8.7-10.4 mg/dL Total Bilirubin 0.7 0.2-1.0 mg/dL Aspartate Amino Transferase (AST) 22 13-40 U/L Alanine Aminotransferase (ALT) 14 7-40 U/L Alkaline Phosphatase 89 46-116 U/L B-Type Natriuretic Peptide 21.86 0-100 pg/mL Total Protein 8.8 H 5.7-8.2 g/dL Albumin 4.9 H 3.2-4.8 g/dL PATIENT: BETY LEAIAACCT: [id number] UNIT: [id number] : 2000 LOC: ER ROOM / BED: / AGE / SEX: 25 / F ADM STATUS: REG ER SERVICE 37 ORDERING PHYSICIAN: SEBASTIEN WIN DO PROCEDURE(s): CXRP - CHEST PORTABLE REASON: cp ORDER NUMBER(s): [id number], ACCESSION NUMBER(s): [id number] INDICATION: cp TECHNIQUE: Frontal view of the chest. COMPARISON: FINDINGS/IMPRESSION: The lungs are clear. The cardiomediastinal silhouette is unremarkable. No p leural effusion or pneumothorax. No acute osseous abnormality. SEPSIS Sepsis Screen Date sepsis recognized/suspect: Sep 19, 2025 Time Sepsis recognized/suspect: 2113 Recent Procedure: No On Antibiotic Therapy: No Respiratory Rate >20: No Heart Rate >90: No Temp<36 C (96.8 F) or >38.3 C: No SBP <90 or MAP <65 mmHG: No New Acute Mental Status Change: No Is the patient on CPAP, BIPAP,: No Physician Orders Electrocardigram (09/19/25 22:17) Electrocardigram (09/20/25 00:17) Medical Illustrator (09/19/25 ) Chest Portable (09/19/25 21:38) Troponin-I Hs (09/20/25 00:38) Allergies (09/19/25 23:19) Code Status (09/19/25 23:19) Sodium Chloride 0.9% (09/19/25 23:30) Oxygen Per Hour (09/19/25 23:19) Hydrocodone-Acet 5/325mg Tab (Clarion (09/19/25 23:30) Ondansetron Hcl (Zofran) (09/19/25 23:30) Docusate Sodium Capsule (Colace Capsule) (09/19/25 23:30) Complete Blood Count (09/20/25 04:00) Comprehensive Metabolic Panel (09/20/25 04:00) Cardiac Diet-2gna,Lofat,Lochol (09/20/25 Breakfast) Condition: Serious (09/19/25 23:19) Acetaminophen Tablet (Tylenol Tablet) (09/19/25 23:30) Bedrest With Bathroom Privileg (09/19/25 23:19) Maintain Bed Rest (09/19/25 23:19) Sequential Compression Device (09/19/25 ) Admit (09/19/25 23:52) Nitroglycerin Sublingual (Ntrostat Subli (09/20/25 00:00) Morphine Sulfate Injection (09/20/25 00:00) Stat Ekg For Chest Pain (09/19/25 23:52) Notify Md Of Changes From Base (09/19/25 23:52) Search Planner For 24 Hours (09/19/25 23:52) Emergency Dysrhythmia Protocol (09/19/25 23:52) Rhythm Strips Once Every Shift (09/19/25 23:52) Oxygen By Nasal Cannula (09/19/25 23:52) Vital Signs Date Time Temp Pulse Resp B/P (MAP) Pulse Ox O2 Delivery O2 Flow Rate FiO2 09/19/25 21:13 98.9 81 18 119/90 97 98.9 09/19/25 21:09 81 Laboratory Tests Test 09/19/25 21:12 White Blood Count 10.0 10^3/uL (4.4-10.8) Assessment/Plan Assessment/Plan Chest pain Generalized weakness Plan 1. Admit to telemetry unit 2. Breathing treatment 3. Pain control management 4. Management of fluids and electrolytes 5. Consultation for hospitalist 6. Diagnostic tests chest x-ray 7. DVT prophylaxis-on SCDs 8. Repeat labs CBC, CMP in a.m. 9. Continue with current medical management 10. Treatment plan discussed with patient and RN. Patient verbalized understanding. Plan discussed with: Patient, Other (RN) My Orders Orders - LORY CARNES DNP Procedure Category Date Status Time Allergies RUBEN 09/19/25 In Process 23:19 Code Status CODE 09/19/25 Transmitted 23:19 Sodium Chloride 0.9% PHA 09/19/25 In Process 23:30 Oxygen Per Hour RT 09/19/25 Transmitted 23:19 Hydrocodone-Acet PHA 09/19/25 In Process 5/325mg Tab (Clarion 23:30 Ondansetron Hcl PHA 09/19/25 In Process (Zofran) 23:30 Docusate Sodium PHA 09/19/25 In Process Capsule (Colace 23:30 Complete Blood Count LAB 09/20/25 Verified 04:00 Comprehensive LAB 09/20/25 Verified Metabolic Panel 04:00 Cardiac DIET 09/20/25 Transmitted Diet-2gna,Lofat,Lochol Breakfast Condition: Serious RUBEN 09/19/25 In Process 23:19 Acetaminophen Tablet PHA 09/19/25 In Process (Tylenol Tablet) 23:30 Bedrest With Bathroom RUBEN 09/19/25 In Process Privileg 23:19 Maintain Bed Rest [facility] 09/19/25 In Process 23:19 Sequential [facility] 09/19/25 In Process Compression Device Admit ADMIT 09/19/25 Verified 23:52 Nitroglycerin [facility] 09/20/25 Verified Sublingual (Ntrostat 00:00 Morphine Sulfate [facility] 09/20/25 Verified Injection 00:00 Stat Ekg For Chest [facility] 09/19/25 Verified Pain 23:52 Notify Md Of Changes [facility] 09/19/25 Verified From Base 23:52 Search Planner For [facility] 09/19/25 Verified 24 Hours 23:52 Emergency Dysrhythmia [facility] 09/19/25 Verified Protocol 23:52 Rhythm Strips Once [facility] 09/19/25 Verified Every Shift 23:52 Oxygen By Nasal 09/19/25 Verified Cannula 23:52 Problem List: (1) Chest pain (2) Generalized weakness Date of Service: Sep 19, 2025 Billing Provider: LORY CARNES DNP Common Visit Codes: [id number] INP/OBS CARE (HIGH) LORY CARNES DNP Sep 19, 2025 23:53
[2025-09-20] MEDS ORDERED: NITROGLYCERIN 0.4 MG SL TAB SL PRN
[2025-09-20] MEDS ORDERED: MORPHINE SULFATE INJ 2 MG/ml SYRG IV PRN
[2025-09-20] MEDS: SODIUM CHLORIDE 0.9% 1,000 ML IV SCH (02:30)
[2025-09-20 02:35] VITALS: O2SAT 98
[2025-09-20 02:55] LABS: Hematocrit 42.9 % (36.0-46.0); Hemoglobin 14.4 g/dL (12.2-16.2); Mean Corpuscular Hemoglobin 30.3 pg (28.0-32.0); Mean Corpuscular Volume 90.0 fL (80.0-100.0); Nucleated Red Blood Cells % 0.0 %
[2025-09-20 03:15] LABS: Alanine Aminotransferase 14 U/L (7-40); Alkaline Phosphatase 93 U/L (46-116); Anion Gap 12 (5-15); BUN/Creatinine Ratio 14.1 (10.0-20.0); Bilirubin, Total 1.2 mg/dL (0.2-1.0); Blood Urea Nitrogen 9 mg/dL (9-23); Calcium 9.7 mg/dL (8.7-10.4); Carbon Dioxide 27 mmol/L (20-31); Glucose 96 mg/dL (74-106)
[2025-09-20 03:21] LABS: Albumin 4.9 g/dL (3.2-4.8); Chloride 97 mmol/L (98-107); Potassium 3.3 mmol/L (3.5-5.1); Sodium 136 mmol/L (136-145); Total Protein 8.9 g/dL (5.7-8.2)
--- NOTE | 2025-09-20 14:44 | DVHINCON2 ---
Date of service: Sep 20, 2025 Referring Physician Jaylin Reason for Consultation Chest pain History of Present Illness This is a 25-year-old female with a past medical history of atrial septal defect who presented to the ED with a complaint of chest pain. Patient reports that she has been experiencing substernal left-sided chest pain, dull sensation, nonradiating, rating 5/10 numeric scale. Patient was more concerned because she has been diagnosed with atrial septal defect last year and underwent atrial septal defect repair in December of 2023. She has been doing fine since then and she is scheduled for transesophageal echocardiogram in October in few weeks at [facility]. WBC 10.0, PLT 416, K 3.8, BUN 9, ANIMAL KEEPER HEAD 0.63, GLUC 81, CA 9.5, troponin < 3, BNP 21.86, D-dimer 0.31. Chest x-ray shows no pleural effusion or pneumothorax, no acute osseous abnormality. EKG is NSR at 81. Patient was admitted to the hospital. I am asked to consult on this patient Allergies: Coded Allergies: NO KNOWN ALLERGIES (Unverified , 04/14/16) Home Meds Active Scripts Cephalexin Monohydrate (Cephalexin) 500 Mg Cap, 1 CAP PO QID for 7 Days, #28 CAP 0 Refills Prov:CHAIM MARAVILLA CERTIFIED MEDICAL DOSIMETRIST 08/26/25 Cephalexin Monohydrate (Cephalexin) 500 Mg Cap, 1 CAP PO BID for 7 Days, #14 CAP 0 Refills Prov:BETH READ 08/19/24 Acetaminophen (Acetaminophen) 500 Mg Tab, 500 MG PO Q4HPRN, #30 TAB 0 Refills Prov:BETH READ 03/26/24 Amoxicillin Trihydrate (Amoxicillin) 500 Mg Cap, 1 CAP PO BID for 10 Days, #20 CAP 0 Refills Prov:BETH READ 03/26/24 Amoxicillin & Pot Clavulanate (Amoxicillin/Potassium Cla) 875 Mg Tab, 1 TAB PO BID for 10 Days, #20 TAB Prov:DERIK KRISHNAN 02/18/22 Current Medications Current Medications Medications (Trade) Dose Ordered Sig/Shilpa Route PRN Reason Start Time Stop Time Status Last Admin Sodium Chloride 1,000 ml @ 60 mls/hr [id number] IV 09/19/25 23:30 09/20/25 02:30 Acetaminophen/ Hydrocodone Bitart (Ephrata 5/325MG Tab) 1 tab Q4HP PRN PO MODERATE PAIN (4-6 PAIN SCALE) 09/19/25 23:30 Ondansetron HCl (Zofran) 4 mg Q4HP PRN IV NAUSEA / VOMITING 09/19/25 23:30 Docusate Sodium (Colace Capsule) 100 mg BIDPRN PRN PO FOR CONSTIPATION 09/19/25 23:30 Acetaminophen (Tylenol Tablet) 650 mg Q6HP PRN PO PAIN SCALE 1-3 OR TEMP>100.4 09/19/25 23:30 Nitroglycerin (Ntrostat Sublingual) 0.4 mg Q5MINP PRN SL FOR CHEST PAIN 09/20/25 00:00 Morphine Sulfate 2 mg Q30M PRN IV FOR CHEST PAIN 09/20/25 00:00 Review of Systems CONSTITUTIONAL: Denies acute: fever, diaphoresis, chills, generalized weakness. HEAD: Denies acute: headache, photophobia Eyes: Denies acute: Double vision, vision loss, eye pain, eye discharge. EARS: Denies acute: tinnitus, hearing loss, ear discharge, ear pain, THROAT: Denies acute: sore throat, swelling, difficulty swallowing , pain with swallowing, change in voice. NECK: Denies acute: neck pain, neck swelling, stiff neck. HEART: Denies acute : , palpitations, LUNGS: Denies acute: SOB, wheezing, cough, hemoptysis ABDOMEN: Denies acute: abdominal pain, Nausea, Vomiting, diarrhea, melena , hematemesis, hematochezia SKIN: Denies acute: rash, redness, lesions, itchiness. EXTREMITIES: Denies acute: calf pain, numbness, tingling, weakness, denies pain in extremity. Denies acute: Low back pain. Neuro: Denies acute: focal neurological deficit, motor or sensory focal neurological deficit, tremors, seizure like activity, confusion, dizziness, change in mental status, loss of bowel or bladder function, cauda equina like symptoms. : Denies acute: dysuria, hematuria, flank pain, increase in urinary frequency. PSYCH: Denies acute: hallucination, suicidal ideation, homicidal ideation. FEMALE: Denies acute: abnormal vaginal bleeding, foul odor, unusual discharge. Vital Signs Vital Signs Date Time Temp Pulse Resp B/P (MAP) Pulse Ox O2 Delivery O2 Flow Rate FiO2 09/20/25 11:08 97.8 59 14 112/76 (88) 100 97.8 09/20/25 02:35 Room Air* 0 21 Physical Exam GENERAL: Alert and oriented x 3. No acute distress. EYES: PERRL, EOMI. Anicteric. HENT: Moist mucous membranes. LUNGS: Clear to auscultation bilaterally. CARDIOVASCULAR: Regular rate and rhythm. ABDOMEN: Soft, nontender and nondistended. EXTREMITIES: No edema. NEUROLOGIC: No focal neurological deficits. SKIN: Warm, dry. Labs/Diagnostic Data Labs Test 09/20/25 02:20 09/20/25 00:20 09/19/25 21:12 Range/Units White Blood Count 11.0 H 4.4-10.8 10^3/uL Red Blood Count 4.76 4.0-5.20 10^6/uL Hemoglobin 14.4 12.2-16.2 g/dL Hematocrit 42.9 36.0-46.0 % Mean Corpuscular Volume 90.0 80.0-100.0 fL Mean Corpuscular Hemoglobin 30.3 28.0-32.0 pg Mean Corpuscular Hemoglobin Concent 33.6 32.0-36.0 g/dL Red Cell Distribution Width 13.6 11.8-14.3 % Platelet Count 438 140-450 10^3/uL Mean Platelet Volume 7.7 6.9-10.8 fL Neutrophils (%) (Auto) 69.3 37.0-80.0 % Lymphocytes (%) (Auto) 17.6 10.0-50.0 % Monocytes (%) (Auto) 11.8 0.0-12.0 % Eosinophils (%) (Auto) 0.4 0.0-7.0 % Basophils (%) (Auto) 0.9 0.0-2.0 % Neutrophils # (Auto) 7.7 1.6-8.6 10 ^3/uL Lymphocytes # (Auto) 1.9 0.4-5.4 10 ^3/uL Monocytes # (Auto) 1.3 0-1.3 10 ^3/uL Eosinophils # (Auto) 0 0-0.8 10 ^3/uL Basophils # (Auto) 0.1 0-0.2 10 ^3/uL Nucleated Red Blood Cells 0.0 % Sodium Level 136 136-145 mmol/L Potassium Level 3.3 L 3.5-5.1 mmol/L Chloride Level 97 L 98-107 mmol/L Carbon Dioxide Level 27 20-31 mmol/L Anion Gap 12 5-15 Blood Urea Nitrogen 9 9-23 mg/dL Creatinine 0.64 0.550-1.02 mg/dL Glomerular Filtration Rate Calc 126 >90 mL/min BUN/Creatinine Ratio 14.1 10.0-20.0 Serum Glucose 96 74-106 mg/dL Calcium Level 9.7 8.7-10.4 mg/dL Total Bilirubin 1.2 H 0.2-1.0 mg/dL Aspartate Amino Transferase (AST) 21 13-40 U/L Alanine Aminotransferase (ALT) 14 7-40 U/L Alkaline Phosphatase 93 46-116 U/L Total Protein 8.9 H 5.7-8.2 g/dL Albumin 4.9 H 3.2-4.8 g/dL Troponin I High Sensitivity < 3 L </=34 ng/L D-Dimer, Quantitative 0.31 0.0-0.49 mg/L FEU B-Type Natriuretic Peptide 21.86 0-100 pg/mL Assessment Chest pain. Generalized weakness. Plan/Recommendation I agree with your ongoing assessment and care of plan. Morphine and [place] for pain management. Nitro SL. Additional plan as per the hospital course. A total of 45 minutes was spent reviewing the patient record, examining the patient, making a diagnostic and therapeutic plan, discussing this plan with medical personnel, following up on diagnostic studies and following the patient for clinical stability excluding any and all procedures. At least 50% of this time was spent in direct, [id number] contact. Plan discussed with: Patient JUAREZ ALBERT MD Sep 20, 2025 12:18
[2025-09-20 19:17] VITALS: BP 128/84; PULSE 73; RESP 16; TEMP 97.7; O2SAT 100
--- NOTE | 2025-09-23 06:35 | ECG ---
[facility] Test Date: 2025-09-19 Test Time: 22:20:38 Pat Name: BETY LEA Department: ED Room: [address] [place] [address] Gender: F Component Engineer: NAZIA : 2000 Requested By: LEONCIO DIAL Order Number: [id number] Reading MD: Andrew Plasencia Measurements Intervals [place] Rate: 73 P: 69 PA: 155 QRS: 79 QRSD: 114 T: 63 QT: 393 QTc: 433 Interpretive Statements Sinus rhythm Incomplete right bundle branch block ST elev, probable normal early repol pattern Electronically Signed On 09-25-2025 19:03:23 PST by Andrew Plasencia Please click the below link to view image of tracing.
--- NOTE | 2025-09-23 06:35 | ECG ---
[facility] Test Date: 2025-09-20 Test Time: 00:27:20 Pat Name: BETY LEA Department: ED Room: [address] [place] [address] Gender: F Modular Set Crew Member: : 2000 Requested By: LEONCIO DIAL Order Number: [id number] Reading MD: Andrew Plasencia Measurements Intervals [place] Rate: 62 P: 62 AR: 148 QRS: 79 QRSD: 118 T: 67 QT: 415 QTc: 422 Interpretive Statements Sinus rhythm Incomplete right bundle branch block ST elev, probable normal early repol pattern Electronically Signed On 09-25-2025 19:04:22 PST by Andrew Plasencia Please click the below link to view image of tracing.
== END 2025-09-20 21:14 | disposition left against medical advice (07) | DRG 203 ==
LOC: ER 21:02 → OVERFLOW 23:52
PROVIDERS: ADMIT Nurse Practitioner Family; ATTEND Nurse Practitioner Family
DX: R07.89 Other chest pain (principal); F41.9 Anxiety disorder, unspecified; Z53.29 Procedure and treatment not carried out because of patient's decision for other reasons; Z87.74 Personal history of (corrected) congenital malformations of heart and circulatory system
CPT/HCPCS: 36415; 71045; 80053; 83880; 84484; 85025; 85379; 93005; G0378